=== PATIENT | male | born 1985 | race Two or more races ===

== ENCOUNTER 2019-02-14 04:26 | Inpatient (IN) | payer BC ==
[~2019-02-14] VITALS: Ht 177.8 cm; Wt 81.2 kg
[2019-02-14] VITALS (18 sets, daily range): BP systolic 102–148; BP diastolic 63–102
--- NOTE | 2019-02-14 04:26 | NUR ---
PT BIBRA C/C SOB SINCE LAST NIGHT. PT STATES "FELT SOB TONIGHT. GOTTEN WORSE. WOKE UP, COULDNT BREATHE" +SOB NOTED. AOX4. SHALLOW RESPIRATIONS. PT ON MONITOR IN BED 5 WITH MD AT BEDSIDE.
[2019-02-14] MEDS ORDERED: Magnesium 1GM/D5W 100ML PREMIX 200 ML IV ONE ×2 (04:27→04:28)
[2019-02-14] MEDS ORDERED: methylPREDNISolone SOD SUCC 125 MG/2ML VIAL ONE (04:27)
--- NOTE | 2019-02-14 04:27 | NUR ---
RT AT BEDSIDE
[2019-02-14] MEDS ORDERED: ALBUTEROL FS 2.5 MG/3 ML VIAL.NEB ONE ×2 (04:29→05:23)
[2019-02-14] MEDS ORDERED: IPRATROPIUM NEB FS 0.5 MG/2.5 ML AMPUL.NEB ONE (04:29)
[2019-02-14] MEDS ORDERED: methylPREDNISolone SOD SUCC 125 MG/2ML VIAL IV ONE (04:30)
[2019-02-14] MEDS ORDERED: ALBUTEROL FS 2.5 MG/3 ML VIAL.NEB NEB ONE (04:30)
[2019-02-14] MEDS ORDERED: IPRATROPIUM NEB FS 0.5 MG/2.5 ML AMPUL.NEB NEB ONE (04:30)
--- NOTE | 2019-02-14 04:34 | NUR ---
BLOOD DRAWN AND GIVEN TO LAB
--- NOTE | 2019-02-14 04:35 | NUR ---
TECH AT BEDSIDE FOR EKG
[2019-02-14 04:42] LABS: BASOPHILS # (AUTO) 0.2 /CMM (0.0-0.2); BASOPHILS % (AUTO) 1.4 % (0.0-2.0); EOSINOPHILS % (AUTO) 8.5 % (0.0-6.0); HEMATOCRIT 50 % (39-51); HEMOGLOBIN 16.4 g/dL (13.5-17.5); LYMPHOCYTES # (AUTO) 5.5 /CMM (0.8-4.8); LYMPHOCYTES % (AUTO) 34.4 % (20.0-44.0); MEAN CORPUSCULAR HGB CONC 33 g/dl (31.0-36.0); MEAN CORPUSCULAR VOLUME 89 fL (80-96); MONOCYTES # (AUTO) 0.9 /CMM (0.1-1.30); MONOCYTES % (AUTO) 5.7 % (2.0-12.0); PLATELET COUNT (AUTO) 364 /CMM (150-450); RED BLOOD CELL COUNT(AUTO) 5.57 MIL/uL (4.5-6.0)
[2019-02-14 04:49] LABS: CALCIUM, SERUM 9.3 mg/dL (8.5-10.1); CREATININE 1.2 mg/dL (0.6-1.3); POTASSIUM 4.8 mmol/L (3.5-5.1)
[2019-02-14 04:55] LABS: ALBUMIN 4.2 g/dL (3.4-5.0); BILIRUBIN,DIRECT 0.1 mg/dL (0.0-0.2); BILIRUBIN,TOTAL 1.1 mg/dL (0.2-1.0); TOTAL PROTEIN, SERUM 7.5 g/dL (6.4-8.2)
--- NOTE | 2019-02-14 05:24 | NUR ---
RADIOLOGY AT BEDSIDE FOR XRAY
[2019-02-14] MEDS ORDERED: DEXTROSE 50%-WATER 50 ML DISP.SYRIN IV PRN (05:30)
[2019-02-14] MEDS ORDERED: ALBUTEROL FS 2.5 MG/0.5 ML VIAL.NEB NEB ONE (05:30)
[2019-02-14] MEDS ORDERED: ACETAMINOPHEN 325 MG TABLET PO PRN (05:30)
[2019-02-14] MEDS ORDERED: ONDANSETRON HCL/PF 4 MG/2 ML VIAL IVP PRN (05:30)
--- NOTE | 2019-02-14 05:36 | NUR ---
CALLED SUP FOR BED. NO ICU NURSES AVAILABLE AT THIS TIME. MD CAMPBELL
--- NOTE | 2019-02-14 05:39 | NUR ---
RT AT BEDSIDE FOR ABGs
[2019-02-14 05:59] LABS: MAGNESIUM 2.3 mg/dL (1.8-2.4); PHOSPHORUS 6.5 mg/dL (2.5-4.9)
[2019-02-14 06:00] LABS: ABG BASE EXCESS -3.8 mmol/L; ABG PCO2 35.3 mmHg (35.0-45.0); ABG PO2 267.8 mmHg (75.0-100.0); COHb 0.3 % (0.5-1.5); MetHb 0.6 % (0.0-1.5); O2Hb 98.1 % (94.0-97.0); SITE, ABG Left Radial; VENT MODE, BG ST 20/5
--- NOTE | 2019-02-14 07:34 | NUR ---
ASSESSED PT ON BED, PT ON SIMPLE MASK, NOTED SOB AND ELEVATED HR, PT IS AAOX4, NOTED RESPIRATORY DISTRESS, ON CHART COLLECTOR, KEPT RESTED AND COMFORTABLE, AWAITING BED FOR ADMISSION.
--- NOTE | 2019-02-14 07:50 | NUR ---
NURSING SUP GAVE ICU BED 254.
--- NOTE | 2019-02-14 07:58 | NUR ---
REPORT GIVEN TO JORGE ZUNIGA IN ICU FOR YANICK.
[2019-02-14] MEDS ORDERED: ALBU18HF2 INH (08:38)
[2019-02-14] MEDS ORDERED: FLUT1BLS IH (08:38)
[2019-02-14] MEDS ORDERED: MONT10TA22 PO (08:38)
[2019-02-14] MEDS: BLOOD SUGAR DIAGNOSTIC 1 EACH STRIP IN SCH ×4 (08:40→17:35)
[2019-02-14] MEDS ORDERED: methylPREDNISolone SOD SUCC 40 MG/ML VIAL IV ONE (09:00)
--- NOTE | 2019-02-14 09:00 | NUR ---
RN NOTE: PATIENT ADMITTED FROM ER ALERT AWAKE ORIENTED X 4 WITH C/O SOB & CHEST PRESSURE. ON 6LPM O2 VIA FACE MASK. AMBULATORY, GETS ANXIOUS & SOB WITH ACTIVITY. SKIN INTACT, NO REDNESS NOTED. ROOM ORIENTATION GIVEN. SINUS TACHY 120S ON TEL MONITOR. SAFETY MEASURES OBSERVED. ENCOURAGE PATIENT TO USE CALL LIGHT FOR ASSISTANCE. CONTINUE WITH PLAN OF CARE.
[2019-02-14] MEDS: AZITHROMYCIN 500 MG in IV D5W 250 ML IV SCH (09:35)
[2019-02-14] MEDS: PANTOPRAZOLE 40 MG VIAL IV SCH (09:35)
[2019-02-14] MEDS: ENOXAPARIN SODIUM 40 MG/0.4 ML DISP.SYRIN SQ SCH (09:36)
[2019-02-14] MEDS: methylPREDNISolone SOD SUCC 125 MG/2ML VIAL IV SCH ×3 (11:10→21:06)
[2019-02-14] MEDS: ALBUTEROL FS 2.5 MG/0.5 ML VIAL.NEB NEB SCH ×4 (11:31→23:19)
[2019-02-14] MEDS: IPRATROPIUM NEB FS 0.5 MG/2.5 ML AMPUL.NEB NEB SCH ×4 (11:31→23:19)
[2019-02-14] MEDS: LORAZEPAM INJ 2 MG/ML VIAL IV PRN ×2 (11:52→19:45)
[2019-02-14] MEDS: INSULIN REGULAR, HUMAN 100 UNIT/ML 3 ML VIAL SQ PRN ×2 (12:14→17:35)
--- NOTE | 2019-02-14 15:33 | NUR ---
RN NOTE: AROUND 1135 AM, NOTED PATIENT BECAME VERY ANXIOUS & SOB, WAS VERBALIZING "CANT BREATH" REPEATEDLY. TRIED BIPAP, WAS REMOVED BY PATIENT. PULLED OUT IV CATH. DR. VELA WAS NOTIFIED, RECEIVED NEW ORDERS ATIVAN 0.5MG Q6HPRN IV. NEW PERIPHERAL IV LINES WERE INSERTED. ATIVAN 0.5MG IV X 1 GIVEN, NOTED EFFECTIVE. STAT EKG WAS DONE WITH SINUS TACHYCARDIA 150. [place] CPR AMBULANCE DRIVER MADE AWARE. WILL CONTINUE TO MONITOR. SAFETY MEASURES OBSERVED.
--- NOTE | 2019-02-14 17:48 | NUR ---
RN NOTE: SUSTAINING HR 150S, C/O SOB SEVERELY, PANICKING. [place] PUBLIC HEALTH ADVISOR MADE AWARE. RECEIVED NEW ORDERS FOR ATIVAN 1 MG IV ONCE. WILL CONTINUE TO MONITOR.
[2019-02-14] MEDS ORDERED: LORAZEPAM INJ 2 MG/ML VIAL IV ONE (18:00)
--- NOTE | 2019-02-14 19:09 | NUR ---
RN NOTE: BEDSIDE REPORT GIVEN TO TORIN RN FOR CONTINUITY OF CARE.
--- NOTE | 2019-02-14 20:00 | NUR ---
BILLET CUTTER NOTES PATIENT IN BED ALERT AWAKE ORIENTED X 4 , ON 6LPM O2 VIA FACE MASK, GETS ANXIOUS & SOB WITH ACTIVITY. ATIVAN GIVEN ORDERED , HOB ELEVATED AT ALL TIMES .PTS ENCOURAGED TO TAKE DEEP BREATH EVERY TIME HE GETS ANXIOUS LUNG SOUND NOTED WHEEZING ,DUE BREATHING TREATMENT GIVEN BY RT . SINUS TACHY 140S ON TEL MONITOR. SAFETY MEASURES OBSERVED. ENCOURAGE PATIENT TO USE CALL LIGHT FOR ASSISTANCE, NO COMPLAIN OF PAIN AT THIS TIME .WILL CONTINUE TO MONITOR PTS.
--- NOTE | 2019-02-14 23:17 | NUR ---
FILLING HAULER WEAVING NOTES PTS HAVING PANIC ATTACK , PTS REMAINS ON 02 AT 6 LITERS VIA NASAL CANULA , DUE BREATHING TREATMENT GIVEN ORDERED.
[2019-02-15] VITALS (26 sets, daily range): BP systolic 82–168; BP diastolic 28–102
--- NOTE | 2019-02-15 00:30 | NUR ---
Blood sugar for 12mn is 123mg/dl no insulin coverage given per sliding scale.
[2019-02-15] MEDS ORDERED: methylPREDNISolone SOD SUCC 125 MG/2ML VIAL IV SCH ×2 (01:00→03:00)
[2019-02-15] MEDS ORDERED: LORAZEPAM INJ 2 MG/ML VIAL IV ONE (01:00)
--- NOTE | 2019-02-15 01:00 | NUR ---
Spoke to [employer] pipe re- pts having sob and tachy 120-140,discuss current medication , with order to give ativan 1mg iv x1 dose and to change solumedrol 60 mg iv to q 6hrs order noted and carried out. pts remains on 6 liters of 02 via nasal canula.will continue to monitor pts.
[2019-02-15] MEDS: ALBUTEROL HALF STRENGTH 1.25 MG/3 ML VIAL.NEB NEB PRN ×6 (01:13→17:40)
[2019-02-15] MEDS: BLOOD SUGAR DIAGNOSTIC 1 EACH STRIP IN SCH ×4 (01:17→17:39)
[2019-02-15] MEDS: INSULIN REGULAR, HUMAN 100 UNIT/ML 3 ML VIAL SQ PRN ×4 (01:18→17:39)
--- NOTE | 2019-02-15 01:30 | NUR ---
Called and notified pipe mayes that pts is having sob and sinus tach even after ativan and breathing treatment admin.gerber betancur with abg stat ,recommended Xopenex and agreed to give x1 with albuterol prn.noted and carried out .
[2019-02-15] MEDS ORDERED: methylPREDNISolone SOD SUCC 125 MG/2ML VIAL IV ONE ×2 (01:40→02:00)
[2019-02-15] MEDS ORDERED: methylPREDNISolone SOD SUCC 40 MG/ML VIAL IV ONE (01:40)
--- NOTE | 2019-02-15 01:50 | NUR ---
relayed abg result with gerber betancur with order to put pts on bipap rt at bedside.order noted and carried out.
--- NOTE | 2019-02-15 02:00 | NUR ---
Pt place on bipap,tolerated only for 10 minutes and pts refused to be on bipap.place on 10 liters of 02 via face mask and Wilstein Projection Welding Machine Operator notified.Started to calm down within 15 mins Hr down to 134/min RR 26/min
--- NOTE | 2019-02-15 02:30 | NUR ---
Pt stood at bedside to urinate with RN attendance .
[2019-02-15 02:34] LABS: ABG BASE EXCESS -3.7 mmol/L; ABG OXYGEN SATURATION 94.5 % (92.0-98.5); ABG PCO2 42.8 mmHg (35.0-45.0); ABG PH 7.332 (7.350-7.450); AaDO2 187.9 mmHg; COHb 0.3 % (0.5-1.5); MetHb 0.6 % (0.0-1.5); O2Hb 93.6 % (94.0-97.0); SITE, ABG Right Radial; VENT MODE, BG NC 6L
[2019-02-15] MEDS: LORAZEPAM INJ 2 MG/ML VIAL IV PRN ×3 (02:37→14:12)
--- NOTE | 2019-02-15 02:40 | NUR ---
Pt sleeping at this time RR regular and even at 27/min HR down to 128/min.
[2019-02-15] MEDS ORDERED: LEVALBUTEROL HCL NEB 1.25 MG/0.5 ML VIAL.NEB NEB ONE (03:00)
[2019-02-15] MEDS: IPRATROPIUM NEB FS 0.5 MG/2.5 ML AMPUL.NEB NEB SCH ×5 (03:30→19:25)
[2019-02-15] MEDS: ALBUTEROL FS 2.5 MG/0.5 ML VIAL.NEB NEB SCH ×6 (03:30→23:23)
[2019-02-15 04:47] LABS: BASOPHILS % (AUTO) 0.2 % (0.0-2.0); HEMATOCRIT 48 % (39-51); LYMPHOCYTES # (AUTO) 0.9 /CMM (0.8-4.8); LYMPHOCYTES % (AUTO) 5.8 % (20.0-44.0); MEAN CORPUSCULAR HGB CONC 33 g/dl (31.0-36.0); MEAN CORPUSCULAR VOLUME 89 fL (80-96); MONOCYTES # (AUTO) 0.5 /CMM (0.1-1.30); MONOCYTES % (AUTO) 3.1 % (2.0-12.0); NEUTROPHILS # (AUTO) 14.7 /CMM (1.8-8.9); NEUTROPHILS % (AUTO) 90.9 % (43.0-81.0); PLATELET COUNT (AUTO) 328 /CMM (150-450); RED BLOOD CELL COUNT(AUTO) 5.45 MIL/uL (4.5-6.0); WHITE BLOOD COUNT (AUTO) 16.1 K/uL (4.3-11.0)
[2019-02-15 05:33] LABS: ALBUMIN 4.3 g/dL (3.4-5.0); BILIRUBIN,TOTAL 1.7 mg/dL (0.2-1.0); CALCIUM, SERUM 9.4 mg/dL (8.5-10.1); CREATININE 1.2 mg/dL (0.6-1.3); MAGNESIUM 2.4 mg/dL (1.8-2.4); PHOSPHORUS 4.7 mg/dL (2.5-4.9); POTASSIUM 5.2 mmol/L (3.5-5.1); TOTAL PROTEIN, SERUM 7.6 g/dL (6.4-8.2)
[2019-02-15 05:41] LABS: THYROID STIMULATING HORMONE 0.584 uIU/mL (0.358-3.74)
--- NOTE | 2019-02-15 06:00 | NUR ---
BLOOD SUGAR FOR 6AM IS 137 MG/DL 2 UNITS OF REGULAR INSULIN GIVEN PER SLIDING SCALE.
[2019-02-15] MEDS: methylPREDNISolone SOD SUCC 125 MG/2ML VIAL IV SCH ×3 (06:06→17:33)
--- NOTE | 2019-02-15 06:10 | NUR ---
PT AGAIN WITH SOB , RT AT BEDSIDE BREATHING TREATMENT GIVEN .
--- NOTE | 2019-02-15 07:00 | NUR ---
RT AT BEDSIDE PT STILL ON SOB , PLACE ON BIPAP PER PTS REQUEST.
--- NOTE | 2019-02-15 07:10 | NUR ---
OTOLARYNGOLOGY REP INITIAL NOTES Rec'd pt awake on bed A/O x 4, in distress, anxious, SOB. On BiPAP, sating at 98% but still c/o SOB. ST on telemonitor 130's bpm. Has 2 IV line access - L wrist G20 SL & R wrist G22 SL but flushing well, no s/sx of infection/infiltration noted. Safety precaution in place w/ bed in lowest & locked pos. Call light placed w/in reach. Will cont to monitor & attend pt needs.
[2019-02-15] MEDS: ENOXAPARIN SODIUM 40 MG/0.4 ML DISP.SYRIN SQ SCH (08:16)
[2019-02-15] MEDS: AZITHROMYCIN 500 MG in IV D5W 250 ML IV SCH (08:16)
[2019-02-15] MEDS: PANTOPRAZOLE 40 MG VIAL IV SCH (08:16)
--- NOTE | 2019-02-15 08:32 | NUR ---
Dr. Goyal updated about pt status. ABG results from last night reviewed by . Per MD, no need for BIPAP at this time.
[2019-02-15] MEDS: TERBUTALINE SULFATE 1 MG/ML VIAL SQ PRN ×2 (09:04→17:32)
--- NOTE | 2019-02-15 09:10 | NUR ---
Pt seen & examined by Dr. Goyal w/ orders made & carried out.
[2019-02-15] MEDS ORDERED: ALBUTEROL FS 2.5 MG/0.5 ML VIAL.NEB NEB ONE ×2 (09:30→12:30)
--- NOTE | 2019-02-15 09:40 | NUR ---
Dr. Goyal made aware that pt still having respiratory distress & panic attacks despite of giving Ativan PRN, terbutaline PRN. Per MD, give Albuterol 10 mg to run for 2 hours x 1 dose. RT Barrios made aware.
--- NOTE | 2019-02-15 12:30 | NUR ---
Pt still having respiratory distress & panic attacks. Per Dr. Goyal, may place back on BIPAP. RT Sophie made aware. Dr. Goyal, also ordered for Albuterol 10mg to run for 2 hours x1 dose. May give another dose of Terbutaline after Albuterol.
[2019-02-15] MEDS: cetrizine 10 MG TABLET PO SCH (12:49)
[2019-02-15] MEDS ORDERED: IV D5/ 0.9% NACL 1,000 ML IV ONE (14:00)
[2019-02-15] MEDS: FLUTICASONE PROPIONATE 16 GM BOTTLE NS SCH (14:23)
--- NOTE | 2019-02-15 18:00 | NUR ---
Pt & requesting if we can switch pt ventolin neb to ventolin inhaler (pt's own). Per Dr. Goyal may change it ventolin 2 puffs q1h PRN. Pt's own inhaler sent to pharmacy.
--- NOTE | 2019-02-15 19:00 | NUR ---
ASSISTANT EDUCATION DIRECTOR CLOSING NOTES Pt resting on his bed, still anxious. Pt still having respiratory distress despite on BiPAP, but sating at 98%. ST on telemonitor. 2 IV line access - L wrist G20 w/ D5NS x 100cc/hr & R wrist G22 SL but flushing well, kept patent & intact w/ no s/sx of infection/infiltration noted. Safety precaution kept in place w/ bed in lowest & locked pos. Call light placed w/in reach. Endorsed to PM RN for YANICK.
--- NOTE | 2019-02-15 19:33 | NUR ---
MATERIAL DISTRIBUTOR. INITIAL ASSESSMENT. RECEIVED THE PT REST ON THE BED, AWAKE, ALERT. FOLLOW COMMANDS. SALES SERVICE TECHNICIAN SHOWING S TACH. PT ON BIPAP. SETTINGS 23/09,RATE IS 4,FIO2 100%. SAT 97%. STILL TACHYPNEIC.MD MADE AWARE PER DAY SHIFT RN. HOB ELEVATED. IV LT [id number],RT HAND 22. WILL CONTINUE TO MONITOR VITALS.
[2019-02-15] MEDS: VENTOLIN HFA INHALER INH PRN (22:55)
[2019-02-16] VITALS (24 sets, daily range): BP systolic 90–126; BP diastolic 60–96
[2019-02-16] MEDS: IPRATROPIUM NEB FS 0.5 MG/2.5 ML AMPUL.NEB NEB SCH ×7 (00:22→23:34)
[2019-02-16] MEDS: methylPREDNISolone SOD SUCC 125 MG/2ML VIAL IV SCH ×5 (00:36→23:34)
[2019-02-16] MEDS: BLOOD SUGAR DIAGNOSTIC 1 EACH STRIP IN SCH ×5 (00:36→21:44)
--- NOTE | 2019-02-16 03:22 | NUR ---
agriculture manager. am care, oral care, bed bath given, linen changed, remaining same bipap setting tolerated well. sat 99%, evs tech showing s tach. hob elevated, will continue to monitor vitals.
[2019-02-16] MEDS: ALBUTEROL FS 2.5 MG/0.5 ML VIAL.NEB NEB SCH ×6 (03:26→23:34)
[2019-02-16] MEDS: VENTOLIN HFA INHALER INH PRN ×10 (04:18→21:48)
[2019-02-16 05:27] LABS: HEMATOCRIT 46 % (39-51); HEMOGLOBIN 14.9 g/dL (13.5-17.5); LYMPHOCYTES # (AUTO) 0.6 /CMM (0.8-4.8); LYMPHOCYTES % (AUTO) 4.2 % (20.0-44.0); MEAN CORPUSCULAR HGB CONC 33 g/dl (31.0-36.0); MEAN CORPUSCULAR VOLUME 89 fL (80-96); MONOCYTES # (AUTO) 0.6 /CMM (0.1-1.30); MONOCYTES % (AUTO) 3.7 % (2.0-12.0); NEUTROPHILS # (AUTO) 14.1 /CMM (1.8-8.9); NEUTROPHILS % (AUTO) 92.1 % (43.0-81.0); PLATELET COUNT (AUTO) 278 /CMM (150-450); RED BLOOD CELL COUNT(AUTO) 5.11 MIL/uL (4.5-6.0); WHITE BLOOD COUNT (AUTO) 15.3 K/uL (4.3-11.0)
[2019-02-16 05:31] LABS: CALCIUM, SERUM 9.7 mg/dL (8.5-10.1); POTASSIUM 4.7 mmol/L (3.5-5.1)
--- NOTE | 2019-02-16 06:14 | NUR ---
SOCIAL MEDIA STRATEGIST. BIPAP OFF 1H, PT C/O HARD TO BREATH, BIPAP PLACED SAME SETTINGS
--- NOTE | 2019-02-16 07:10 | NUR ---
ROTARY FURNACE OPERATOR INITIAL NOTES Rec'd pt sleeping on bed, arousable. On BiPAP, sating at 98%. ST on telemonitor. L wrist G20 SL flushing well, no s/sx of infection/infiltration noted. Safety precaution in place w/ bed in lowest & locked pos. Call light placed w/in reach. Will cont to monitor & attend pt needs.
[2019-02-16] MEDS: cetrizine 10 MG TABLET PO SCH (08:17)
[2019-02-16] MEDS: PANTOPRAZOLE 40 MG VIAL IV SCH (08:17)
[2019-02-16] MEDS: AZITHROMYCIN 500 MG in IV D5W 250 ML IV SCH (08:18)
[2019-02-16] MEDS: FLUTICASONE PROPIONATE 16 GM BOTTLE NS SCH (08:18)
[2019-02-16] MEDS: ENOXAPARIN SODIUM 40 MG/0.4 ML DISP.SYRIN SQ SCH (08:19)
--- NOTE | 2019-02-16 08:45 | NUR ---
Pt seen & examined by Jaya JASSO. Per ORACLE DBA, may advance diet to regular & change sliding scale to ACHS mild.
[2019-02-16] MEDS ORDERED: DEXTROSE 50%-WATER 50 ML DISP.SYRIN IV PRN (09:00)
[2019-02-16] MEDS: LORAZEPAM INJ 2 MG/ML VIAL IV PRN ×2 (09:18→20:32)
[2019-02-16] MEDS: INSULIN REGULAR, HUMAN 100 UNIT/ML 3 ML VIAL SQ PRN ×2 (11:52→17:21)
--- NOTE | 2019-02-16 18:38 | NUR ---
PULVERIZER TENDER CLOSING NOTES Pt resting comfortably on his bed, feeling much better. On room air, tolerating well (NC at bedside for PRN SOB). ST on telemonitor. 2 IV line access - L wrist G20 & LH G20 SL both flushing well, kept patent & intact w/ no s/sx of infection/infiltration noted. Safety precaution kept in place w/ bed in lowest & locked pos. Call light placed w/in reach. Will endorse to PM RN for YANICK. Per Jaya BREAKFAST SUPERVISOR will keep ICU for now, need to be off BIPAP for 24 hrs. Pt made aware.
--- NOTE | 2019-02-16 19:12 | NUR ---
RN OPENING NOTES RECEIVED PATIENT IN BED, ALERT, A/OX4. ON OXYGEN 2L VIA NASAL CANNULA, TOLERATING WELL, NO SOB OR RESPIRATORY DISTRESS NOTED. SATURATING 94% AT THE MOMENT. DENIES ANY PAIN. SINUS TACHY ON MONITOR WITH HR 112. IV SITES LEFT WRIST 20G AND LEFT HAND 20G, BOTH FLUSHINIG AND PATENT, SALINE LOCKED. SAFETY MEASURES IN PLACE; CALL LIGHT WITHIN REACH, SR UP X2, BED LOCKED AND IN LOWEST POSITION, URINAL AT BEDSIDE. WILL CONT TO MONITOR PT CLOSELY.
[2019-02-16 23:19] LABS: APPEARANCE,URINE CLOUDY (CLEAR); BILIRUBIN,URINE NEGATIVE (NEGATIVE); BLOOD, URINE NEGATIVE Ery/uL (NEGATIVE); COLOR,URINE YELLOW (YELLOW); KETONES,URINE TRACE (NEGATIVE); LEUKOCYTE ESTERASE ,URINE NEGATIVE (NEGATIVE); NITRITE, URINE NEGATIVE (NEGATIVE); PROTEIN,URINE NEGATIVE (NEGATIVE); UGLUCOSE NEGATIVE (NEGATIVE); UROBILINOGEN,URINE 0.2 EU/dL (0.2)
[2019-02-16 23:25] LABS: BACTERIA,URINE None seen /HPF (None Seen); RBC,URINE 0-2 /HPF (0-2); SQUAMOUS EPITHELIAL CELL,UR Few /HPF (None Seen); WBC,URINE 0-2 /HPF (0-3)
[2019-02-16 23:26] LABS: URINE AMORPHOUS URATE Many /HPF (None Seen)
[2019-02-17] VITALS (24 sets, daily range): BP systolic 91–127; BP diastolic 45–86
[2019-02-17] MEDS: ALBUTEROL FS 2.5 MG/0.5 ML VIAL.NEB NEB SCH ×6 (03:40→23:27)
[2019-02-17] MEDS: IPRATROPIUM NEB FS 0.5 MG/2.5 ML AMPUL.NEB NEB SCH ×6 (03:40→23:27)
[2019-02-17 04:50] LABS: HEMATOCRIT 44 % (39-51); HEMOGLOBIN 14.4 g/dL (13.5-17.5); LYMPHOCYTES # (AUTO) 0.6 /CMM (0.8-4.8); LYMPHOCYTES % (AUTO) 5.4 % (20.0-44.0); MEAN CORPUSCULAR HGB CONC 33 g/dl (31.0-36.0); MEAN CORPUSCULAR VOLUME 88 fL (80-96); MONOCYTES # (AUTO) 0.4 /CMM (0.1-1.30); MONOCYTES % (AUTO) 3.8 % (2.0-12.0); NEUTROPHILS # (AUTO) 9.8 /CMM (1.8-8.9); NEUTROPHILS % (AUTO) 90.8 % (43.0-81.0); PLATELET COUNT (AUTO) 241 /CMM (150-450); RED BLOOD CELL COUNT(AUTO) 4.96 MIL/uL (4.5-6.0); WHITE BLOOD COUNT (AUTO) 10.8 K/uL (4.3-11.0)
[2019-02-17 05:27] LABS: CALCIUM, SERUM 9.1 mg/dL (8.5-10.1); CREATININE 0.9 mg/dL (0.6-1.3); POTASSIUM 4.2 mmol/L (3.5-5.1)
[2019-02-17] MEDS: methylPREDNISolone SOD SUCC 125 MG/2ML VIAL IV SCH ×4 (05:49→23:17)
[2019-02-17] MEDS: VENTOLIN HFA INHALER INH PRN ×7 (06:15→17:56)
--- NOTE | 2019-02-17 07:10 | NUR ---
CADWORX PIPING DESIGNER INITIAL NOTES Rec'd pt awake on bed, not in any distress, A/O x 4. On NC 3lpm, denies SOB, still having productive cough. ST/SR on telemonitor. Has L ANGI G20 SL, occluded, will remove. Safety precaution in place w/ bed in lowest & locked pos. Call light placed w/in reach. Will cont to monitor & attend pt needs.
[2019-02-17] MEDS: LORAZEPAM INJ 2 MG/ML VIAL IV PRN ×3 (07:25→20:01)
--- NOTE | 2019-02-17 07:25 | NUR ---
RN CLOSING NOTES PATIENT IN BED, ALERT, A/OX4. ON OXYGEN 3L VIA NASAL CANNULA THROUGHOUT SHIFT, TOLERATING WELL, NO SOB OR RESPIRATORY DISTRESS NOTED. SATURATING 94% AT THE MOMENT. DENIES ANY PAIN. SINUS RHYTHM ON MONITOR WITH HR 90'S. IV SITE LEFT EXTERNAL JUGULAR 20G, FLUSHING AND PATENT, SALINE LOCKED. PT REFUSED AM CARE. ALL MD ORDERS ATTENDED. SAFETY MEASURES IN PLACE; CALL LIGHT WITHIN REACH, SR UP X2, BED LOCKED AND IN LOWEST POSITION, URINAL AT BEDSIDE. ENDORSED TO AM RN FOR YANICK.
[2019-02-17] MEDS: BLOOD SUGAR DIAGNOSTIC 1 EACH STRIP IN SCH ×4 (07:39→21:21)
[2019-02-17] MEDS: INSULIN REGULAR, HUMAN 100 UNIT/ML 3 ML VIAL SQ PRN ×3 (07:41→17:59)
[2019-02-17] MEDS: AZITHROMYCIN 500 MG in IV D5W 250 ML IV SCH (08:03)
[2019-02-17] MEDS: PANTOPRAZOLE 40 MG VIAL IV SCH (08:03)
[2019-02-17] MEDS: cetrizine 10 MG TABLET PO SCH (08:04)
[2019-02-17] MEDS: ENOXAPARIN SODIUM 40 MG/0.4 ML DISP.SYRIN SQ SCH (08:04)
[2019-02-17] MEDS: FLUTICASONE PROPIONATE 16 GM BOTTLE NS SCH (08:05)
--- NOTE | 2019-02-17 09:00 | NUR ---
Pt seen & examined by Jaya JASSO. Per AGRONOMY TECHNICIAN, may transfer out from ICU if cleared pulmo lujan. Pt's concerns/questions answered by AGRONOMY TECHNICIAN. Addendum: 02/17/19 at 1039 by PUMA ARRIOLA RN Addendum: Per AGRONOMY TECHNICIAN, may ambulate.
--- NOTE | 2019-02-17 10:47 | NUR ---
Pt seen & examined by Dr. Lopez w/ orders to start Guaifenesin 600 mg PO q12h. Addendum: 02/17/19 at 1052 by PUMA ARRIOLA RN Addendum: Per Dr. Lopez, may add Saline spray q6h prn.
[2019-02-17] MEDS ORDERED: SALINE NASAL SPRAY 0.65% 1 BOTTLE BOTTLE NS PRN (11:00)
[2019-02-17] MEDS: GUAIFENESIN 300 MG/15 ML UDC PO SCH ×2 (11:05→20:00)
--- NOTE | 2019-02-17 11:34 | NUR ---
Dr. Lopez made verbal order to start on Montelukast 10 mg daily at dinnertime.
--- NOTE | 2019-02-17 13:00 | NUR ---
Dr. Lopez made aware pt sating 86% after ambulating in the hallway while on R/A. Addendum: 02/17/19 at 1845 by PUMA ARRIOLA RN Addendum: Per Dr. Lpoez, keep pt in ICU for now.
--- NOTE | 2019-02-17 13:10 | NUR ---
Dr. Lopez made verbal order to start on Augmentin 875 mg PO BID x 10 days for sinusitis.
[2019-02-17] MEDS: AMOX/CLAVULANATE 875 MG TABLET PO SCH (13:57)
[2019-02-17] MEDS: MONTELUKAST SODIUM (10MG) 10 MG TABLET PO SCH (18:02)
--- NOTE | 2019-02-17 18:45 | NUR ---
DECORATION CHECKER CLOSING NOTES Pt resting comfortably on his bed. On NC at 2lpm, sating 94%. ST on telemonitor. RFA G20 SL flushing well, kept patent & intact w/ no s/sx of infection/infiltration noted. Safety precaution kept in place w/ bed in lowest & locked pos. Call light placed w/in reach. Will endorse to PM RN for YANICK.
[2019-02-18] VITALS (13 sets, daily range): BP systolic 85–127; BP diastolic 41–81
--- NOTE | 2019-02-18 | NUR ---
PRETZEL COOKER NOTES RIGHT FA PERIPHERAL IV PAINFUL UPON FLUSHING, DC'd WITH CANNULA INTACT, NEW ACCESS OBTAINED IN LEFT WRIST # 20G, NOTED WITH GOOD BLOOD RETURN
[2019-02-18] MEDS: ALBUTEROL FS 2.5 MG/0.5 ML VIAL.NEB NEB SCH ×6 (03:15→22:54)
[2019-02-18] MEDS: IPRATROPIUM NEB FS 0.5 MG/2.5 ML AMPUL.NEB NEB SCH ×6 (03:15→22:54)
[2019-02-18 05:09] LABS: BASOPHILS % (AUTO) 0.1 % (0.0-2.0); CALCIUM, SERUM 8.9 mg/dL (8.5-10.1); CREATININE 0.9 mg/dL (0.6-1.3); HEMATOCRIT 43 % (39-51); HEMOGLOBIN 14.5 g/dL (13.5-17.5); LYMPHOCYTES # (AUTO) 0.5 /CMM (0.8-4.8); LYMPHOCYTES % (AUTO) 6.2 % (20.0-44.0); MEAN CORPUSCULAR HGB CONC 34 g/dl (31.0-36.0); MEAN CORPUSCULAR VOLUME 87 fL (80-96); MONOCYTES # (AUTO) 0.3 /CMM (0.1-1.30); NEUTROPHILS # (AUTO) 7.2 /CMM (1.8-8.9); NEUTROPHILS % (AUTO) 89.7 % (43.0-81.0); PLATELET COUNT (AUTO) 221 /CMM (150-450); POTASSIUM 4.7 mmol/L (3.5-5.1); WHITE BLOOD COUNT (AUTO) 8.1 K/uL (4.3-11.0)
[2019-02-18] MEDS: methylPREDNISolone SOD SUCC 125 MG/2ML VIAL IV SCH ×4 (06:19→23:42)
--- NOTE | 2019-02-18 07:15 | NUR ---
GUZZLER BUILDER NOTES PATIENT ABLE TO AMBULATE TO BATHROOM STEADILY WITHOUT ANY ASSISTANCE, EXPERIENCED MILD SHORTNESS OF BREATH UPON EXERTION, BUT IMPROVED WITH REST AND O2, INHALER USED WITH RESOLUTION OF SHORTNESS OF BREATH. Addendum: 02/18/19 at 0736 by DL MORALES RN 88% ON ROOM AIR AFTER AMBULATION
[2019-02-18] MEDS: VENTOLIN HFA INHALER INH PRN (07:22)
--- NOTE | 2019-02-18 07:30 | NUR ---
ICU/RN: Pt received, A&Ox4, no distress. Mild expiratory wheezing noted throughout on 2L/min via NC. Oriented to POC and educated on meds. Will cont to monitor pt.
[2019-02-18] MEDS: BLOOD SUGAR DIAGNOSTIC 1 EACH STRIP IN SCH ×4 (07:47→22:54)
[2019-02-18] MEDS: MONTELUKAST SODIUM (10MG) 10 MG TABLET PO SCH (08:05)
[2019-02-18] MEDS: PANTOPRAZOLE 40 MG VIAL IV SCH (08:05)
[2019-02-18] MEDS: AZITHROMYCIN 250 MG TABLET PO SCH (08:05)
[2019-02-18] MEDS: cetrizine 10 MG TABLET PO SCH (08:05)
[2019-02-18] MEDS: GUAIFENESIN 300 MG/15 ML UDC PO SCH ×2 (08:05→20:39)
[2019-02-18] MEDS: ENOXAPARIN SODIUM 40 MG/0.4 ML DISP.SYRIN SQ SCH (08:06)
--- NOTE | 2019-02-18 08:15 | NUR ---
ICU/RN: S/B Jaya Ulloa NP. Pt eager to go home and expresses desire to go home. Awaiting pulmonology clearance to [facility].
[2019-02-18] MEDS: FLUTICASONE PROPIONATE 16 GM BOTTLE NS SCH (08:20)
--- NOTE | 2019-02-18 08:30 | NUR ---
ICU/RN: S/B Dr Goyal. Off bipap x48 hours. Cleared for downgrade to [employer].
--- NOTE | 2019-02-18 09:45 | NUR ---
ICU/RN: Pt transferred to med/surg in stable condition, no S/S pain or distress. Ambulated without respiratory distress. All paperwork, belongings and medications transferred with pt. Oriented to unit. Received at bedside by GHANSHYAM Recio and JORGE Goodwin. Addendum: 02/18/19 at 1013 by PRAFUL HARMON RN Still awaiting delivery of 0900 augmentin dose from Rx. Jhonny Isabel notified of pending transfer. Endorsed administration to JORGE Goodwin.
--- NOTE | 2019-02-18 10:00 | NUR ---
RN NOTES RECEIVED PATIENT FROM ICU, A/O X4. ABLE TO MAKE NEEDS KNOWN. NO SIGNS OF DISTRESS NOTED AT THIS TIME. ORIENTED TO UNIT, STAFF AND ROOM. IV ACCESS ON LEFT WRIST #20, SL. PATENT AND INTACT. SAFETY MEASURES IN PLACE, BED IN LOW LOCKED POSITION WITH SIDE RAILS UP X2. CALL LIGHT WITHIN EASY REACH. WILL CONTINUE TO MONITOR.
[2019-02-18] MEDS: AMOX/CLAVULANATE 875 MG TABLET PO SCH ×2 (10:22→16:33)
[2019-02-18] MEDS: LORAZEPAM INJ 2 MG/ML VIAL IV PRN ×2 (14:28→20:45)
--- NOTE | 2019-02-18 18:40 | NUR ---
RN CLOSING NOTES PATIENT IN BED RESTING COMFORTABLY IN MODERATE HIGH BACK REST. A/O X4. ABLE TO MAKE NEEDS KNOWN. NO SIGNS OF DISTRESS NOTED THROUGHOUT THE SHIFT. IV ACCESS ON LEFT WRIST #20, SL. PATENT AND INTACT. ALL DUE MEDS GIVEN. SAFETY MEASURES IN PLACE, BED IN LOW LOCKED POSITION WITH SIDE RAILS UP X2. CALL LIGHT WITHIN EASY REACH. WILL ENDORSE TO SCRAPER MEAT NURSE FOR YANICK.
--- NOTE | 2019-02-18 20:00 | NUR ---
RN MS CONTINUITY OF CARE NOTES RECEIVED PATIENT FROM KIMBERLEE PATEL, AWAKE ALERT AND ORIENTED X4, RESPIRATIONS EVEN AND UNLABORED WITH EQUAL RISE AND FALL OF CHEST, DENIES ANY PAIN OR DISCOMFORT AT THIS TIME, RESPIRATIONS EVEN AND UNLABORED WITH EQUAL RISE AND FALL OF CHEST, ON 02 2L VIA NC TOLERATED WELL. IV SITE TO LEFT HAND #20G INTACT AND PATENT NO REDNESS, NO INFILTRATION PRESENT, SAFETY PRECAUTIONS IN PLACE, LOW BED AND LOCKED, ORIENTED TO STAFF CALL LIGHT WITHIN REACH REMAINS COMFORTABLE ALL NEEDS ATTENDED AT THIS TIME, WILL CONTINUE TO MONITOR.
--- NOTE | 2019-02-18 20:45 | NUR ---
RN MS NOTES PATIENT REQUEST FOR ATIVAN PRN ATIVAN 0.5MG/0.25ML PRN GIVEN ORDERED VERIFIED AND THE REST WITNESSED AND WASTED WITH ANOTHER RN.WILL CONTINUE TO MONITOR.
--- NOTE | 2019-02-18 21:09 | NUR ---
RN MS NOTES REPORT GIVEN TO CHUN FOR CONTINUITY OF CARE.PATIENT REMAINS COMFORTABLE.
--- NOTE | 2019-02-18 21:20 | NUR ---
MS/RN ASSUMED CARE FOR CONTINUITY OF CARE. PATIENT IS AWAKE, ALERT, ORIENTED, COMFORTABLE, NO C/O PAIN AT THIS TIME, NO DISTRESS NOTED, CALL LIGHT IN REACH. WILL MONITOR.
[2019-02-19] MEDS: IPRATROPIUM NEB FS 0.5 MG/2.5 ML AMPUL.NEB NEB SCH ×2 (03:26→07:55)
[2019-02-19] MEDS: ALBUTEROL FS 2.5 MG/0.5 ML VIAL.NEB NEB SCH ×2 (03:26→07:55)
--- NOTE | 2019-02-19 04:07 | NUR ---
MS/RN PATIENT IS SLEEPING AT THIS TIME, APPEAR COMFORTABLE, NO SIGNS OF DISTRESS NOTED, CALL LIGHT IN REACH, WILL CONTINUE TO MONITOR.
[2019-02-19] MEDS: BLOOD SUGAR DIAGNOSTIC 1 EACH STRIP IN SCH (06:24)
[2019-02-19] MEDS: methylPREDNISolone SOD SUCC 125 MG/2ML VIAL IV SCH (06:24)
[2019-02-19 06:42] LABS: HEMATOCRIT 45 % (39-51); HEMOGLOBIN 15.1 g/dL (13.5-17.5); LYMPHOCYTES # (AUTO) 0.7 /CMM (0.8-4.8); LYMPHOCYTES % (AUTO) 7.1 % (20.0-44.0); MEAN CORPUSCULAR HGB CONC 34 g/dl (31.0-36.0); MEAN CORPUSCULAR VOLUME 87 fL (80-96); MONOCYTES # (AUTO) 0.5 /CMM (0.1-1.30); MONOCYTES % (AUTO) 4.7 % (2.0-12.0); NEUTROPHILS # (AUTO) 8.5 /CMM (1.8-8.9); NEUTROPHILS % (AUTO) 88.2 % (43.0-81.0); PLATELET COUNT (AUTO) 233 /CMM (150-450); RED BLOOD CELL COUNT(AUTO) 5.14 MIL/uL (4.5-6.0); WHITE BLOOD COUNT (AUTO) 9.6 K/uL (4.3-11.0)
--- NOTE | 2019-02-19 06:47 | NUR ---
MS/RN PATIENT IS AWAKE AT THIS TIME, COMFORTABLE, NO C/O PAIN, NO DISTRESS NOTED, ALL NEEDS ATTENDED AT THIS TIME, WILL CONTINUE TO MONITOR.
[2019-02-19 06:48] LABS: CALCIUM, SERUM 9.1 mg/dL (8.5-10.1); CREATININE 0.8 mg/dL (0.6-1.3); POTASSIUM 4.4 mmol/L (3.5-5.1)
--- NOTE | 2019-02-19 07:38 | NUR ---
MS RN NOTES PATIENT RECEIVED RESTING INSIDE ROOM. AWAKE, ALERT AND ORIENTED X 4. NO ACUTE DISTRESS. DENIES ANY PAIN OR DISCOMFORT. NO CHANGES IN LOC NOTED. WILL CONTINUE TO MONITOR. BED LOCKED AND IN LOW POSITION. BILATERAL UPPER SIDE RAILS UP AND LOCKED. CALL LIGHT WITHIN EASY REACH
[2019-02-19 08:00] VITALS: BP 126/76
[2019-02-19] MEDS: ENOXAPARIN SODIUM 40 MG/0.4 ML DISP.SYRIN SQ SCH (08:44)
[2019-02-19] MEDS: PANTOPRAZOLE 40 MG VIAL IV SCH (08:48)
[2019-02-19] MEDS: GUAIFENESIN 300 MG/15 ML UDC PO SCH (08:48)
[2019-02-19] MEDS: MONTELUKAST SODIUM (10MG) 10 MG TABLET PO SCH (08:48)
[2019-02-19] MEDS: AMOX/CLAVULANATE 875 MG TABLET PO SCH (08:48)
[2019-02-19] MEDS: cetrizine 10 MG TABLET PO SCH (08:48)
[2019-02-19] MEDS: AZITHROMYCIN 250 MG TABLET PO SCH (08:48)
[2019-02-19] MEDS: FLUTICASONE PROPIONATE 16 GM BOTTLE NS SCH (08:50)
--- NOTE | 2019-02-19 09:46 | NUR ---
MS RN NOTES OFFERED VACCINATIONS BUT PATIENT VERBALIZED HE WANTS TO HOLD OFF ON TAKING VACCINATIONS AT THIS TIME. RISKS AND BENEFITS EXPLAINED BUT TO NO AVAIL. PATIENT WISHES NOT TO HAVE VACCINATIONS AT THIS TIME. WILL CONTINUE TO MONITOR
[2019-02-19] MEDS ORDERED: METH4TAB3 PO (11:27)
[2019-02-19] MEDS ORDERED: FLUT1BLS IH (11:27)
[2019-02-19] MEDS ORDERED: ALBU18HF2 INH (11:27)
[2019-02-19] MEDS ORDERED: AMOX-430 PO (11:27)
[2019-02-19] MEDS ORDERED: MONT10TA22 PO (11:28)
--- NOTE | 2019-02-19 11:31 | NUR ---
MS RN NOTES PATIENT WITH DISCHARGE ORDER TO HOME. PLACED CALL TO [facility] AND SPOKE WITH MIN PHARMACIST, VERIFIED THAT THEY HAVE RECEIVED ALL PRESCRIPTIONS FROM HOSPITALIST. DR HANSON PRESENT AT UNIT AND AWARE. PATIENT MADE AWARE AND VERBALIZED UNDERSTANDING. WILL CONTINUE TO MONITOR
--- NOTE | 2019-02-19 11:50 | NUR ---
MS RN NOTES PATIENT WITH DISCHARGE HOME ORDER. DISCHARGE INSTRUCTIONS AND EDUCATION PROVIDED AND VERBALIZED UNDERSTANDING. ALL BELONGINGS COMPLETE ON DISCHARGE, NO REPORT OF MISSING INVENTORY. PATIENT AWARE THAT PRESCRIPTIONS ARE SENT TO [facility] AND HE VERBALIZED THAT HE WILL GO AND PICK MEDICATIONS UP FROM THERE. PATIENT ACCOMPANIED BY NURSING STAFF TO MAIN LOBBY AND PARKING LOT. WAITING AT LOBBY WITH NEW CLOTHES FOR PATIENT. PATIENT LEFT [facility] VIA PRIVATE CAR WITH . NO ACUTE DISTRESS. DENIES ANY PAIN OR DISCOMFORT. NO CHANGES IN LOC. HOSPITALIST AWARE OF DISCHARGE
== END 2019-02-19 12:00 | disposition home or self-care (01) | DRG 871 ==
LOC: ER 04:26 → ICU 08:06 → TELE 02-18 10:10 → MED 02-18 10:14
PROVIDERS: ADMIT Nurse Practitioner Acute Care; ATTEND Nurse Practitioner Acute Care
PROC: 5A09357 Assistance with Respiratory Ventilation, Less than 24 Consecutive Hours, Continuous Positive Airway Pressure (ICD-10-PCS; principal; 2019-02-15)
DX: A41.9 Sepsis, unspecified organism (principal); J96.01 Acute respiratory failure with hypoxia; J45.902 Unspecified asthma with status asthmaticus; J98.11 Atelectasis; J20.9 Acute bronchitis, unspecified; F12.90 Cannabis use, unspecified, uncomplicated; J32.4 Chronic pansinusitis; J32.9 Chronic sinusitis, unspecified; Z88.6 Allergy status to analgesic agent; F14.90 Cocaine use, unspecified, uncomplicated; F17.200 Nicotine dependence, unspecified, uncomplicated
CPT/HCPCS: 36415; 36600; 70220-TC; 71045-TC; 80048-TC; 80053-TC; 80061-TC; 80076-TC; 81000-TC; 82803-TC; 82962-TC; 83735-TC; 84100-TC; 84443-TC; 84484-TC; 85025-TC; 87081-TC; 94660; 94760-TC; 94762-TC; 94799-TC; C9113; G0378; J0456; J1650; J1815; J2060; J2920; J2930; J3105; J3475; J7042; J7060

== ENCOUNTER 2019-04-21 11:20 | Emergency (ER) | payer BC ==
[~2019-04-21] VITALS: Ht 177.8 cm; Wt 85.3 kg
[~2019-04-21 11:20] MED LIST: ALBU18HF2 INH; AMOX-430 PO; FLUT1BLS IH; METH4TAB3 PO; MONT10TA22 PO
--- NOTE | 2019-04-21 11:41 | NUR ---
[email or web address], from home, asthma attack x2 days, worse this morning. Albuterol given on scene 02 sat 91 % on room air, 97% after Tx. STATES FEELING SIGNIFICANTLY BETTER. ALSO C/O DRY COUGH. AOX4, AMBULATORY, VSS, RR EVEN AND UNLABORED WITH LIGHT WHEEZING. SKIN WARM, DRY, INTACT. NO ACUTE DISTRESS NOTED. FAMILY AT BEDSIDE, ON MONITOR AND READY FOR EVAL.
--- NOTE | 2019-04-21 11:52 | NUR ---
AT BEDSIDE FOR EVAL.
[2019-04-21] MEDS ORDERED: IPRATROPIUM NEB FS 0.5 MG/2.5 ML AMPUL.NEB NEB ONE (12:00)
[2019-04-21] MEDS ORDERED: predniSONE 20 MG TABLET PO ONE (12:00)
[2019-04-21] MEDS ORDERED: ALBUTEROL FS 2.5 MG/3 ML VIAL.NEB NEB ONE (12:00)
[2019-04-21] MEDS ORDERED: predniSONE 20 MG TABLET ONE (12:04)
--- NOTE | 2019-04-21 12:05 | NUR ---
RADIOLOGY AT BEDSIDE
--- NOTE | 2019-04-21 12:08 | NUR ---
CALLED RT FOR BREATHING TX
[2019-04-21] MEDS ORDERED: ALBUTEROL FS 2.5 MG/3 ML VIAL.NEB ONE (12:09)
[2019-04-21] MEDS ORDERED: IPRATROPIUM NEB FS 0.5 MG/2.5 ML AMPUL.NEB ONE (12:09)
--- NOTE | 2019-04-21 12:15 | NUR ---
RT AT BEDSIDE
--- NOTE | 2019-04-21 13:00 | NUR ---
PT STILL ON BREATHING TX, RESTING IN BED, NO COMPLAINTS AT THIS TIME
--- NOTE | 2019-04-21 13:57 | NUR ---
Patient discharged to home in stable condition. Written and verbal after care instructions given. Patient verbalizes understanding of instruction.
[2019-04-21 13:58] VITALS: BP 130/89
== END 2019-04-21 13:59 | disposition home or self-care (01) ==
LOC: ER 11:21
DX: J45.901 Unspecified asthma with (acute) exacerbation (principal); R00.0 Tachycardia, unspecified; Z79.899 Other long term (current) drug therapy; Z88.6 Allergy status to analgesic agent
CPT/HCPCS: 71045; 94644; 99285; J7512